=== PATIENT | male | born 1990 | race Caucasian/White ===

== ENCOUNTER 2022-11-12 15:53 | Outpatient (REF) | payer BC, SELFPAY ==
[2022-11-12 16:51] LABS: Basophils Absolute Auto 0.05 K/uL (0.00-0.30); Basophils Percent Auto 0.6 % (0.0-3.0); Eosinophils Absolute Auto 0.13 K/uL (0.00-0.50); Eosinophils Percent Auto 1.6 % (0.0-7.0); Hematocrit 42.7 % (37.0-53.0); Hemoglobin* 14.5 gm/dL (13.5-17.5); Immature Granulocytes Abs Auto 0.02 K/uL (0.00-0.30); Immature Granulocytes Pct Auto 0.3 %; Lymphocytes Absolute Auto 1.78 K/uL (0.90-2.90); Lymphocytes Percent Auto 22.5 % (20-44); Mean Corpuscular HGB Conc 34 gm/dL (32-36); Mean Corpuscular Hemoglobin 32 pg (26-34); Mean Corpuscular Volume 93 fL (80-100); Monocytes Percent Auto 5.3 % (0.0-11.0); Neutrophils Percent Auto 69.7 % (42.0-72.0); Platelet Count* 311 K/uL (140-440); RDW Coefficient of Variation % 11.8 % (11.5-15.5)
[2022-11-12 16:58] LABS: Cholesterol* 163 mg/dL (90-199); HDL Cholesterol* 43 mg/dL (>=40); LDL Cholesterol Calculated 90 mg/dL (<100); Triglycerides* 149 mg/dL (40-149)
[2022-11-12 17:01] LABS: Slide Review Reflex No
[2022-11-12 19:06] LABS: Hemoglobin A1C* 4.71 % (0-5.6)
[2022-11-14 11:50] LABS: Lithium, Serum or Plasma 0.5 mmol/L (0.5-1.2)
== END 2022-11-12 15:54 | disposition home or self-care (01) ==
LOC: NPINS 15:53
PROVIDERS: PCP Family Medicine
DX: Z00.00 Encounter for general adult medical examination without abnormal findings (principal); R11.2 Nausea with vomiting, unspecified; F41.1 Generalized anxiety disorder; Z13.6 Encounter for screening for cardiovascular disorders; Z13.29 Encounter for screening for other suspected endocrine disorder; Z13.1 Encounter for screening for diabetes mellitus
CPT/HCPCS: 80048; 80061; 80076; 80178; 83036; 84443; 85025

== ENCOUNTER 2023-11-29 10:00 | Outpatient (CLI) | payer BC, SELFPAY | END 2023-11-29 10:01 | disposition home or self-care (01) | PROVIDERS: PCP Family Medicine; Visit Provider Family Medicine | DX: R63.4 Abnormal weight loss (principal); F31.9 Bipolar disorder, unspecified; R10.9 Unspecified abdominal pain; F19.90 Other psychoactive substance use, unspecified, uncomplicated; F41.1 Generalized anxiety disorder; Z13.0 Encounter for screening for diseases of the blood and blood-forming organs and certain disorders involving the immune mechanism; F10.11 Alcohol abuse, in remission; F10.10 Alcohol abuse, uncomplicated | CPT/HCPCS: 80053; 80164; 80165; 80178; 85025 ==

== ENCOUNTER 2024-04-27 12:36 | Outpatient (REF) | payer BC, SELFPAY ==
[2024-04-27 13:07] LABS: Basophils Absolute Auto 0.06 K/uL (0.00-0.30); Basophils Percent Auto 0.9 % (0.0-3.0); Eosinophils Absolute Auto 0.23 K/uL (0.00-0.50); Eosinophils Percent Auto 3.3 % (0.0-7.0); Hematocrit 42.9 % (37.0-53.0); Immature Granulocytes Abs Auto 0.01 K/uL (0.00-0.30); Immature Granulocytes Pct Auto 0.1 %; Lymphocytes Absolute Auto 1.82 K/uL (0.90-2.90); Lymphocytes Percent Auto 26.1 % (20-44); Mean Corpuscular HGB Conc 33 gm/dL (32-36); Mean Corpuscular Hemoglobin 32 pg (26-34); Mean Corpuscular Volume 97 fL (80-100); Monocytes Percent Auto 6.2 % (0.0-11.0); Neutrophils Absolute Auto 4.41 K/uL (1.7-7.0); Neutrophils Percent Auto 63.4 % (42.0-72.0); Platelet Count* 304 K/uL (140-440); RDW Coefficient of Variation % 12.2 % (11.5-15.5); Red Blood Count 4.42 m/uL (4.30-5.90); White Blood Count* 6.96 K/uL (4.50-11.00)
[2024-04-27 13:08] LABS: Albumin* 4.7 g/dL (3.3-5.0); Chloride* 107 mmol/L (96-114); Slide Review Reflex No
[2024-04-27 13:09] LABS: Potassium* 4.4 mmol/L (3.6-5.1); Sodium* 138 mmol/L (135-149)
[2024-04-27 13:11] LABS: Alkaline Phosphatase* 103 U/L (40-150); Anion Gap 4 mEq/L (7-15); Aspartate Amino Transferase* 27 U/L (12-35); Bilirubin Total* 0.2 mg/dL (0.1-1.5); Blood Urea Nitrogen* 16 mg/dL (5-24); Carbon Dioxide* 27 mmol/L (20-32); Creatinine* 0.8 mg/dL (0.5-1.5); Estimated Glomerular Filt Rate 120 ml/min
[2024-04-27 13:12] LABS: Alanine Aminotransferase* 26 U/L (4-50); Calcium* 9.5 mg/dL (8.4-10.6); Glucose* 101 mg/dL (60-115)
[2024-04-27 13:29] LABS: Free T4 Free Thyroxine* 0.85 ng/dL (0.70-1.85)
[2024-04-28 19:32] LABS: Free T3 2.9 pg/mL (2.5-4.3)
[2024-04-28 21:48] LABS: Lithium, Serum or Plasma 0.5 mmol/L (0.5-1.2)
== END 2024-04-27 12:37 | disposition home or self-care (01) ==
LOC: NPINS 12:36
PROVIDERS: PCP Family Medicine; Visit Provider Nurse Practitioner Adult Health
DX: F31.76 Bipolar disorder, in full remission, most recent episode depressed (principal)
CPT/HCPCS: 80053; 80178; 84439; 84443; 84481; 85025

== ENCOUNTER 2025-04-01 10:57 | Outpatient (CLI) | payer BC, SELFPAY ==
[2025-04-01 11:54] LABS: Hematocrit* 44.6 % (37.0-53.0); Hemoglobin* 14.8 gm/dL (13.5-17.5); Immature Granulocytes Abs Auto 0.03 K/uL (0.00-0.30); Immature Granulocytes Pct Auto 0.4 %; Lymphocytes Absolute Auto 2.22 K/uL (0.90-2.90); Mean Corpuscular HGB Conc 33 gm/dL (32-36); Mean Corpuscular Hemoglobin 34 pg (26-34); Mean Corpuscular Volume 101 fL (80-100); RDW Coefficient of Variation % 12.0 % (11.5-15.5); Red Blood Count* 4.42 m/uL (4.30-5.90); White Blood Count* 7.09 K/uL (4.50-11.00)
[2025-04-01 11:58] LABS: Slide Review Reflex No
[2025-04-01 14:16] LABS: Albumin* 4.3 g/dL (3.3-5.0); Chloride* 103 mmol/L (96-114); Potassium* 5.1 mmol/L (3.6-5.1); Sodium* 139 mmol/L (135-149)
[2025-04-01 14:19] LABS: Alanine Aminotransferase* 27 U/L (4-50); Alkaline Phosphatase* 64 U/L (40-150); Anion Gap 7 mEq/L (7-15); Aspartate Amino Transferase* 36 U/L (12-35); Bilirubin Total* 0.5 mg/dL (0.1-1.5); Blood Urea Nitrogen* 12 mg/dL (5-24); Calcium* 9.4 mg/dL (8.4-10.6); Carbon Dioxide* 29 mmol/L (20-32); Creatinine* 0.9 mg/dL (0.5-1.5); Estimated Glomerular Filt Rate 115 ml/min; Glucose* 118 mg/dL (60-115); Total Protein* 6.8 g/dL (6.0-8.3)
== END 2025-04-01 10:58 | disposition home or self-care (01) ==
LOC: NPINS 10:58
PROVIDERS: PCP Family Medicine; Visit Provider Nurse Practitioner Adult Health
DX: F31.76 Bipolar disorder, in full remission, most recent episode depressed (principal)
CPT/HCPCS: 80053; 80178; 84443; 85025